=== PATIENT | female | born 1990 | race Caucasian/White ===

== ENCOUNTER 2023-08-05 20:28 | Emergency (ER) | payer OTHER ==
[~2023-08-05] VITALS: Ht 165.1 cm; Wt 80.0 kg
[2023-08-05 20:31] VITALS: BP 117/86; PULSE 82; RESP 18; TEMP 98.2; O2SAT 99
== END 2023-08-05 23:13 | disposition home or self-care (01) ==
LOC: ER 20:28
DX: M79.652 Pain in left thigh (principal)
CPT/HCPCS: 93971; 99284